=== PATIENT | male | born 1945 | race Caucasian/White ===

== ENCOUNTER 2016-05-22 11:19 | Day surgery (SDC) ==
[2016-05-22] MEDS ORDERED: LIDOCAINE 1% 20 ML MDV ID ONE (12:05)
[2016-05-22] MEDS ORDERED: LIDOCAINE 1% 20 ML MDV ONE (12:05)
[2016-05-22] MEDS ORDERED: ROBINOL ONE (12:16)
[2016-05-22] MEDS ORDERED: DIPRIVAN 20 ML VIAL IVP ONE (12:16)
[2016-05-22] MEDS ORDERED: LIDOCAINE 2% 20 ML MDV ONE (12:16)
[2016-05-22] MEDS ORDERED: VERSED ONE (12:16)
[2016-05-22] MEDS ORDERED: LIDOCAINE HCL 2% LUER-JET ONE (12:16)
[2016-05-22 13:09] VITALS: BP 115/71; TEMP 97.5
--- NOTE | 2016-05-22 14:42 | OP ---
PROCEDURE: EGD (ESOPHAGOGASTRODUODENOSCOPY) WITH BIOPSY, BOURGEOIS DILATATION. ENDOSCOPIST: Peter CANADA M.D. INDICATION: DYSPHAGIA. INSTRUMENT: [id number]. MEDICATION: PER ANESTHESIA. PROCEDURE: The patient was positioned for endoscopy. The oropharynx was sprayed with Cetacaine spray. The endoscope was advanced through the bite block into the esophagus and from there to the duodenum. The duodenum was normal. The pylorus was widely patent. Some mild gastritis is noted at the prepyloric area. This was biopsied. Biopsy for Helicobacter was obtained. On retroflex exam he has a hiatal hernia. The Z-line was irregular at 40 cm. Biopsies were obtained. A 48 [place] [employer] was passed without difficulty. He tolerated the procedure without immediate complication. PLAN: 1. Suggest he continue his Protonix. 2. Review his pathology to make further recommendations. CC: DR. VINI ELIAS
== END 2016-05-22 13:25 | disposition home or self-care (01) ==
LOC: SURG 11:19
PROVIDERS: ATTEND Internal Medicine Gastroenterology
DX: R13.10 Dysphagia, unspecified (principal); D13.1 Benign neoplasm of stomach; K29.70 Gastritis, unspecified, without bleeding; K44.9 Diaphragmatic hernia without obstruction or gangrene; B96.81 Helicobacter pylori [H. pylori] as the cause of diseases classified elsewhere; E11.9 Type 2 diabetes mellitus without complications
CPT/HCPCS: 82962; 87339